=== PATIENT | female | born 1980 | race African-American/Black ===

== ENCOUNTER 2022-07-11 16:09 | Emergency (ER) | payer SELFPAY ==
[~2022-07-11] VITALS: Ht 167.6 cm; Wt 83.9 kg
[2022-07-11 16:09] VITALS: BP 130/90
[2022-07-11] MEDS ORDERED: predniSONE 20 MG TAB PO ONE (16:20)
[2022-07-11] MEDS ORDERED: predniSONE 20 MG TAB ONE (17:25)
--- NOTE | 2022-07-11 18:20 | NUR ---
41y/o female BIBA for allergic reaction s/p bee sting. Pt reports being stung by a bee 4 hours ago, complaining of burning and itching, states throat "felt funny." Pt reports using an Epi pen that someone handed her. Pt denies throat pain, SOB or itching upon asessment. Pt reports feeling lightheaded, and a 6/10 pain.
--- NOTE | 2022-07-11 19:27 | NUR ---
Pt report given to MARCIA Albarado. Transfer of care at this time.
[2022-07-11] MEDS ORDERED: DIPH25TA53 PO (20:02)
[2022-07-11] MEDS ORDERED: EPIN1KIT31 IM (20:02)
[2022-07-11] MEDS ORDERED: FAMO-90 PO (20:02)
[2022-07-11] MEDS ORDERED: PRED20TA5 PO (20:02)
[2022-07-11 20:11] VITALS: BP 120/76
--- NOTE | 2022-07-11 20:11 | NUR ---
Patient discharged with v/s stable. Written and verbal after care instructions given and explained. Patient alert, oriented and verbalized understanding of instructions. Ambulatory with steady gait. All questions addressed prior to discharge. ID band removed. Patient advised to follow up with PMD. Rx of BENADRYL, EPIPEN, PEPCID, DELTASONE given. Patient educated on indication of medication including possible reaction and side effects. Opportunity to ask questions provided and answered.
== END 2022-07-11 20:11 | disposition home or self-care (01) ==
LOC: MED 16:09
DX: Z76.1 Encounter for health supervision and care of foundling (principal); T63.441A Toxic effect of venom of bees, accidental (unintentional), initial encounter; Y92.89 Other specified places as the place of occurrence of the external cause
CPT/HCPCS: 99283; J7512